=== PATIENT | female | born 1995 | race Caucasian/White ===

== ENCOUNTER 2021-12-22 12:46 | Emergency (ER) | payer SELFPAY ==
[2021-12-22 12:48] VITALS: BP 125/88; PULSE 80; RESP 14; TEMP 36.7; O2SAT 97; BMI 21.2
--- NOTE | 2021-12-22 13:16 | ED_ITS ---
HPI - Anxiety General Chief Complaint: Anxiety Stated Complaint: Anxiety Time Seen by Provider: 12/22/21 12:48 History of Present Illness HPI narrative: This 26-year-old female comes in reporting some increased anxiety symptoms. She has from her over the past week. She states that she has been having some anxiety symptoms over the past couple years but the current circumstances have made things worse for her. She does not feel unsafe to herself. She states that she has had a couple episodes of lightheadedness and brief loss of consciousness in the past couple weeks. She was evaluated for this at a [place] facility. EKG and labs were normal. She states that she has not been eating and drinking much under these current circumstances. She is not taking any medications. She also did have some alcohol last night and realizes that this was not a good plan for her. Related Data Previous Rx's Medication Instructions Recorded lorazepam 0.5 mg tablet (Ativan) 0.5 mg PO BID PRN #6 tabs 12/22/21 Allergies Allergy/AdvReac Type Severity Reaction Status Date / Time No Known Drug Allergies Allergy Verified 12/22/21 12:47 Review of Systems Status of ROS: Reports: 10 or more systems reviewed and unremarkable except as noted in History and below Narrative: Constitutional: No fevers, no weight gain or loss. Lightheadedness episodes as described above. Eyes: No discharge. No vision changes. HENT: No congestion, no sore throat, no ear pain. Cardiovascular: No chest pain, no palpitations. Respiratory: No shortness of breath, no wheezes, no cough. Gastrointestinal: No abdominal pain, no vomiting, no diarrhea. Genitourinary: No dysuria, no hematuria. Musculoskeletal: Normal range of motion. Skin: No rashes, no pruritis. Neurological: No weakness, sensory change, speech change. Endo/Heme/Allergies: No bruising or bleeding. No polydipsia. Pysch: no suicidality, no anxiety, no insomnia. All other systems reviewed and are negative. Exam Narrative: Exam Narrative: Constitutional: Well-developed, well-nourished, no acute distress. HEENT: Normocephalic, atraumatic. Neck: Normal range of motion. Nontender. Supple. Heart: Regular. No murmurs. Normal rate. Intact distal pulses. Lungs: Clear to auscultation. No chest discomfort. No wheezes, rhonchi, or rales. Abdomen: Normal bowel sounds. Nontender. No rebound tenderness. Genitalia: Deferred. Back: No midline tenderness. Normal range of motion. Extremities: Normal range of motion. No injury. Skin: Intact. No rash. Warm. No erythema or pallor. Neurologic: No altered sensation. No weakness. Alert and oriented. Psychiatric: No suicidality. No depression. She reports anxiety symptoms related to her health and her current circumstances with her . Nursing notes and vitals signs are reviewed. Const: Vital Signs, click to edit/add: Vital Signs - 24 hr 12/22/21 12:48 Temperature 98.0 F Pulse Rate [Right Pulse Oximeter] 80 Respiratory Rate 14 Blood Pressure [Ri ght Upper Arm] 125/88 Pulse Oximetry 97 Oxygen Delivery Me thod Room Air Course Vital Signs Vital signs: Initial Vital Signs Temperature 98.0 F 12/22/21 12:48 Temperature Source Temporal Artery Scan 12/22/21 12:48 Pulse Rate 80 12/22/21 12:48 Respiratory Rate 14 12/22/21 12:48 Blood Pressure 125/88 12/22/21 12:48 Blood Pressure Mean 100 12/22/21 12:48 Blood Pressure Position Sitting 12/22/21 12:48 Pulse Oximetry 97 12/22/21 12:48 Oxygen Delivery Method 12/22/21 12:48 Vital Signs Temperature 98.0 F 12/22/21 12:48 Pulse Rate 80 12/22/21 12:48 Respiratory Rate 14 12/22/21 12:48 Blood Pressure 125/88 12/22/21 12:48 Pulse Oximetry 97 12/22/21 12:48 Oxygen Delivery Method 12/22/21 12:48 Temperature 98.0 F 12/22/21 12:48 Pulse Rate 80 12/22/21 12:48 Respiratory Rate 14 12/22/21 12:48 Blood Pressure 125/88 12/22/21 12:48 Pulse Oximetry 97 12/22/21 12:48 Oxygen Delivery Method 12/22/21 12:48 MDM - Anxiety MDM Narrative Medical decision making narrative: This patient comes in with anxiety symptoms that have worsened because of being from her . She has an appointment in clinic tomorrow and has access to good resources. She does have some anxiety about her health because she has felt lightheaded at times. She states that she is not taking much food or drink. Lightheadedness episodes of happened when getting up too quickly. She did have lab and EKG studies done a couple weeks ago and reports that these results were all normal. Today her vital signs are in normal range. I did discuss repeating or doing further studies to get further reassurance. The patient did request to have ultrasound of her heart which I did at bedside showing normal findings. The patient received an oral dose of Ativan 0.5 mg and I prescribed 6 more tablets of the same. She understands that this is not a good long-term plan for treating anxiety symptoms. I did stress the importance of taking food and drink. Discharge Plan Discharge Clinical Impression: Adjustment reaction with anxiety, Anxiety Patient Disposition: Home, Self-Care Condition: Stable Additional Instructions: Follow-up with appointment as scheduled. Take medication as needed and directed. Avoid alcohol. Return if worsening symptoms happen. Prescriptions: New lorazepam [Ativan] 0.5 mg tablet 0.5 mg PO BID PRNQty: 6 0RF Stand Alone Forms: [facility] Management Info Instructions Procedures Ultrasound Cardiac exam #1: Anatomical areas examined: parasternal long and parasternal short Indications: other Exam type: limited transthoracic echocardiogram Impression: negative exam
[2021-12-22] MEDS: LORazepam 0.5 MG TABLET PO (13:23)
== END 2021-12-22 14:15 | disposition home or self-care (01) ==
LOC: ED 14:04
PROVIDERS: Emergency Provider Emergency Medicine Emergency Medical Services
DX: F43.22 Adjustment disorder with anxiety (principal)
CPT/HCPCS: 93308; 99282; 99284; A9270